=== PATIENT | female | born 1975 | race African-American/Black ===

== ENCOUNTER 2017-02-11 10:54 | Emergency (ER) | payer SELFPAY ==
[~2017-02-11] VITALS: Ht 165.1 cm; Wt 75.0 kg
[~2017-02-11 10:54] MED LIST: DILT31TA PO; IBUP800T23 PO; LISI-360 PO; NAPR250T57 PO; XANA0.5T PO; ZOFR4TAB3 PO; ZOFR4TAB3 SL
[2017-02-11 10:56] VITALS: BP 194/102; PULSE 83; RESP 20; TEMP 97.7; O2SAT 100
[2017-02-11 12:29] VITALS: BP 192/115; PULSE 72; RESP 24; O2SAT 100
[2017-02-11] MEDS ORDERED: cloNIDine HCL 0.2 MG TAB PO ONE (12:45)
--- NOTE | 2017-02-11 12:52 | PD ---
HPI Chief Complaint: Respiratory Symptoms Time Seen by Provider: 12:31 Travel History International Travel<30 days: No Contact w/Intl Traveler<30days: No Traveled to known affect area: No History of Present Illness HPI The patient was seen and examined in the presence of the nurse. She complains of difficulty sleeping for the last 4 days. She has intermittent shortness of breath. She seems highly anxious. She can't afford to see a doctor or get her blood pressure medicine filled. She used to take lisinopril. She comes in with accelerated hypertension. No headache or chest pain or syncope. Symptoms severity is moderate. No alleviating factors. Duration 4 days PFSH Past Medical History Atrial Fibrillation: Yes Cardiovascular Problems: Yes (A-FIB) Headaches: Yes Hypertension: Yes Respiratory: Yes (ASTHMA) Influenza Vaccination: No ?: Not LMP: 02-01-17 Menopausal: Yes Past Surgical History Section: Yes Gynecologic Surgery: Yes (CERVIX STAPLE LAST ) Social History Alcohol Use: No Tobacco Use: Yes (1-2 cigs a week) Substance Use: Yes (THC once a month) Allergies-Medications (Allergen,Severity, Reaction): Coded Allergies: No Known Allergies (Unverified , 02/11/17) Reported Meds & Prescriptions Reported Meds & Active Scripts Active Ibuprofen 800 Mg Tab 800 Mg PO Q6H PRN Zofran ODT (Ondansetron HCl) 4 Mg Tab 4 Mg SL Q6H PRN Xanax 0.5 mg (Alprazolam) Alprazolam 0.5 mg Tab 1 Tab PO BID PRN Zofran ODT (Ondansetron HCl) 4 Mg Tab 4 Mg PO Q6H PRN Reported Cardizem 30 mg tab (Diltiazem HCl) 30 Mg Tab 1 Tab PO BID Naprosyn (Naproxen) 250 Mg Tab 250 Mg PO Q6 PRN Lisinopril 10 mg (Lisinopril) 10 Mg Tab 1 Tab PO DAILY Review of Systems General / Constitutional: No: Fever Eyes: No: Visual changes HENT: No: Headaches Cardiovascular: No: Chest Pain or Discomfort Respiratory: Positive: Shortness of Breath Gastrointestinal: No: Abdominal Pain Genitourinary: No: Dysuria Musculoskeletal: No: Pain Skin: No Rash Neurologic: No: Weakness Psychiatric: No: Depression Endocrine: No: Polydipsia Hematologic/Lymphatic: No: Easy Bruising Physical Exam Narrative GENERAL: Well-nourished, well-developed patient in no apparent distress. SKIN: Focused skin assessment reveals no rash and nodules. Skin is Warm and dry. HEAD: Atraumatic. Normocephalic. EYES: Pupils equal and round. No scleral icterus. No injection or drainage. ENT: No nasal bleeding or discharge. Mucous membranes pink and moist. NECK: Trachea midline. No JVD. CARDIOVASCULAR: Regular rate and rhythm. No murmur appreciated. RESPIRATORY: No accessory muscle use. Clear to auscultation. Breath sounds equal bilaterally. GASTROINTESTINAL: Abdomen soft, non-tender, nondistended. Hepatic and splenic margins not palpable. MUSCULOSKELETAL: No obvious deformities. No clubbing. No cyanosis. No edema. NEUROLOGICAL: Awake and alert. No obvious cranial nerve deficits. Motor grossly within normal limits. Normal speech. PSYCHIATRIC: Anxious mood and affect; insight and judgment normal. Data Data Last Documented VS Vital Signs Date Time Temp Pulse Resp B/P Pulse Ox O2 Delivery O2 Flow Rate FiO2 02/11/17 14:19 75 18 170/94 100 Room Air 02/11/17 10:56 97.7 Orders Iv Access Insert/Monitor (02/11/17 12:40) Complete Blood Count With Diff (02/11/17 12:40) Basic Metabolic Panel (Bmp) (02/11/17 12:40) Clonidine (Catapres) (02/11/17 12:45) Chest, Single Ap (02/11/17 ) Beta Hcg (Quant/Titer) (02/11/17 12:40) Electrocardiogram (02/11/17 12:25) Labs Laboratory Tests Test 02/11/17 12:43 White Blood Count 5.3 TH/MM3 Red Blood Count 4.43 MIL/MM3 Hemoglobin 8.6 GM/DL Hematocrit 28.7 % Mean Corpuscular Volume 64.7 FL Mean Corpuscular Hemoglobin 19.4 PG Mean Corpuscular Hemoglobin 30.0 % Concent Red Cell Distribution Width 21.5 % Platelet Count 441 TH/MM3 Mean Platelet Volume 6.5 FL Neutrophils (%) (Auto) 53.2 % Lymphocytes (%) (Auto) 36.1 % Monocytes (%) (Auto) 7.5 % Eosinophils (%) (Auto) 1.8 % Basophils (%) (Auto) 1.4 % Neutrophils # (Auto) 2.8 TH/MM3 Lymphocytes # (Auto) 1.9 TH/MM3 Monocytes # (Auto) 0.4 TH/MM3 Eosinophils # (Auto) 0.1 TH/MM3 Basophils # (Auto) 0.1 TH/MM3 CBC Comment DIFF FINAL Differential Comment Sodium Level 139 MEQ/L Potassium Level 4.4 MEQ/L Chloride Level 108 MEQ/L Carbon Dioxide Level 22.9 MEQ/L Anion Gap 8 MEQ/L Blood Urea Nitrogen 12 MG/DL Creatinine 0.99 MG/DL Estimat Glomerular Filtration 75 ML/MIN Rate Random Glucose 67 MG/DL Calcium Level 8.9 MG/DL Human Chorionic Gonadotropin, LESS THAN 1 Quant MIU/ML MDM Medical Decision Making Medical Screen Exam Complete: Yes Emergency Medical Condition: Yes Medical Record Reviewed: Yes Differential Diagnosis Bronchitis, pneumonia, asthma, anxiety Narrative Course I have reviewed the patient's electronic medical record. IV placed CBC is normal Metabolic profile is normal Beta hCG is negative I reviewed her chest x-ray which is normal She has accelerated hypertension I gave her dose of clonidine and will reassess She is neurologically intact to objective exam She seems anxious and is most concerned about her insomnia. Stable for outpatient follow-up. Blood pressure down to 180 systolic after clonidine She should check and record daily I prescribed her lisinopril while she searches for a family physician Diagnosis Primary Impression: Dyspnea Qualified Code: R06.00 - Dyspnea, unspecified type Additional Impressions: Accelerated hypertension Insomnia Qualified Code: G47.00 - Insomnia, unspecified type Additional Instructions: The patient was advised to follow up with their physician and return if they worsen. Check and record blood pressure daily Med/Other Pt SpecificInfo: Prescription(s) given Disposition: 01 DISCHARGE HOME Condition: Stable Dom Long MD Feb 11, 2017 12:52
[2017-02-11 12:55] LABS: AUTOMATED NEUTROPHIL # 2.8 TH/MM3 (1.8-7.7); BASOPHIL # 0.1 TH/MM3 (0-0.2); BASOPHIL % 1.4 % (0.0-2.0); EOSINOPHIL # 0.1 TH/MM3 (0-0.4); EOSINOPHIL % 1.8 % (0.0-4.0); HEMATOCRIT 28.7 % (35.0-46.0); HEMO FLAGS DIFF FINAL; LYMPH % 36.1 % (9.0-44.0); LYMPHOCYTE # 1.9 TH/MM3 (1.0-4.8); MEAN CELL VOLUME 64.7 FL (80.0-100.0); MEAN CORPUSCULAR HEMOGLOBIN 19.4 PG (27.0-34.0); MONO % 7.5 % (0.0-8.0); NEUT % 53.2 % (16.0-70.0); PLATELET COUNT 441 TH/MM3 (150-450); RED BLOOD COUNT 4.43 MIL/MM3 (4.00-5.30); RED CELL DISTRIBUTION WIDTH 21.5 % (11.6-17.2); WHITE BLOOD COUNT 5.3 TH/MM3 (4.0-11.0)
--- NOTE | 2017-02-11 13:26 | RADRPT ---
EXAM DATE/TIME: 02/11/2017 12:54 [facility] COMPARISON: CHEST SINGLE AP, April 07, 2014, 15:24. INDICATIONS : Short of breath high blood pressure. MEDICAL HISTORY : Hypertension. SURGICAL HISTORY : None. ENCOUNTER: Initial ACUITY: 3 days PAIN SCORE: 1/10 LOCATION: Bilateral chest FINDINGS: Single view of the chest demonstrates the heart be at the upper limits of normal in size. The mediast inal contours are within normal limits. The lungs are clear. The visualized bony structures are intac t. CONCLUSION: 1. No acute findings. Stable compared to previous. Yovany Irvin MD on February 11, 2017 at 13:24 Board Certified Radiologist. This report was verified electronically.
[2017-02-11 13:57] LABS: ANION GAP 8 MEQ/L (5-15); BICARBONATE 22.9 MEQ/L (21.0-32.0); BLOOD UREA NITROGEN 12 MG/DL (7-18); CHLORIDE 108 MEQ/L (98-107); GLOMERULAR FILTRATION RATE 75 ML/MIN (>89); POTASSIUM 4.4 MEQ/L (3.5-5.1); SODIUM (NA) 139 MEQ/L (136-145)
[2017-02-11 13:58] LABS: BETA HCG QUANT LESS THAN 1 MIU/ML (0-5)
[2017-02-11 14:19] VITALS: BP 170/94; PULSE 75; RESP 18; O2SAT 100
[2017-02-11] MEDS ORDERED: LISI-515 PO (15:18)
--- NOTE | 2017-02-13 11:15 | EKG ---
Date Performed: 02/11/2017 Time Performed: 12:25:42 PTAGE: 41 years EKG: Sinus rhythm VOLTAGE CRITERIA FOR LVH ABNORMAL ECG PREVIOUS TRACING : 04/07/2014 15.37 DOCTOR: Rob Daugherty Interpretating Date/Time 02/13/2017 11:07:11
== END 2017-02-11 19:01 | disposition home or self-care (01) ==
LOC: NEPC 10:54
DX: R06.00 Dyspnea, unspecified (principal); I10 Essential (primary) hypertension; G47.00 Insomnia, unspecified; I48.91 Unspecified atrial fibrillation; J45.909 Unspecified asthma, uncomplicated; R94.31 Abnormal electrocardiogram [ECG] [EKG]; F17.210 Nicotine dependence, cigarettes, uncomplicated; Z79.899 Other long term (current) drug therapy
CPT/HCPCS: 71010; 80048; 84702; 85025; 93005